=== PATIENT | male | born 1955 | race African-American/Black ===

== ENCOUNTER → 2016-08-09 | Day surgery (SDC) | payer OTHER ==
[~2016-08-09] MED LIST: ATOR10; KETOROLAC TROMETHAMINE 30 MG/ML (IVP) VIAL IV PUSH ONE; LACTATED RINGER'S 1,000 ML BAG IV ONE; LIDOCAINE 1%/EPINEPHrine 1:100,000 SOLN 20 ML VIAL ONE; LISI2.5T3; METO50TA; ONDANSETRON HCL 4 MG/2 ML VIAL IV PUSH ONE; PROPOFOL 200 MG/20 ML AMP IV ONE; SODIUM CHLORIDE 0.9% INJ 10 ML ONE; Z.0.NO CURRENT MEDS
--- NOTE | 2016-08-09 14:14 | TN ---
cc: KAMERON GRIFFIN M.D., DAVID G. M.D. DATE OF SURGERY: 08/09/2016 PREOPERATIVE DIAGNOSIS Progressive muscle weakness. POSTOPERATIVE DIAGNOSIS Progressive muscle weakness. PROCEDURE Right lateral quadriceps muscle biopsy. SURGEON Dr. Rafa Nielson ANESTHESIA General with laryngeal mask. INDICATION This is a very pleasant 60-year-old -[place] gentleman with neurofibromatosis who has long-time muscle weakness that has progressively gotten worse over the last 20 years. He is seen by Dr. Griffin who has recommended muscle biopsy to further delineate the cause and potentially provide direction for treatment and/or prognosis. He says his lower extremity weakness is worse on the right than left. INTRAOPERATIVE FINDINGS Successful 3 cm segment of right lateral quadriceps muscle biopsy sent fresh to pathology. I called to pathology preoperatively to ask how they wished to receive the tissue. It was indicated that I should send it fresh. I specifically asked whether or not it should be in a muscle clamp or the muscle held in extension and they said no just send it fresh. ESTIMATED BLOOD LOSS Minimal. DESCRIPTION OF PROCEDURE IN DETAIL The patient was identified as Michael Perez, taken to the operating room and placed in supine position. Sequential compression devices were placed on bilateral lower extremities. Following induction of adequate general anesthesia with laryngeal mask, the right lateral thigh was prepped and draped in the usual sterile fashion with Betadine. The proposed incision was made with a marking pen. A timeout procedure was performed. Following completion of the timeout procedure to everyone's satisfaction within the room, 1% lidocaine with epinephrine was injected in the skin and subcutaneous space of the proposed incision. The incision was carried out with a scalpel and hemostasis controlled with electrocautery. Dissection continued posteriorly until the lateral fascia was encountered. Local anesthetic was placed beneath the fascia which was opened in its direction using a scalpel and Metzenbaum scissor. The underlying muscle was from the overlying fascia and in the direction of the muscle fibers a segment about 2 cm wide and about 3 cm long was from surrounding muscular fibers using a hemostat. It was clamped proximally and distally with Diamond clamps and the intervening segment excised using a scalpel. It was placed into a specimen container with a piece of gauze with saline. Either end of the muscular fibers was suture ligated with 2-0 Vicryl suture ligature. The wound was irrigated with saline. The remaining local anesthetic was placed within the wound. There was no evidence of bleeding. The fascia laterally was closed with running 2-0 Vicryl suture. The subcutaneous space was approximated with interrupted 3-0 Vicryl sutures. Skin was approximated with running 4-0 Monocryl subcuticular suture. Dressings were applied with Mastisol, half-inch brown Steri-Strips, gauze and Crystal covered by surgical netting. The patient tolerated the procedure without apparent complication. Sponge, needle and instrument counts were correct at the end of the case. MD PETROS Burton/YASMEEN /1:56 PM /2:04 PM
== END | disposition home or self-care (01) ==
LOC: ESDC 11:00
PROVIDERS: ATTEND Surgery Trauma Surgery
DX: M62.81 Muscle weakness (generalized) (principal); Q85.00 Neurofibromatosis, unspecified
CPT/HCPCS: 01250; 20205; J1885; J2405; J3010; J7120